=== PATIENT | female | born 1990 | race Caucasian/White ===

== ENCOUNTER 2020-03-12 07:27 | Inpatient (IN) | payer OTHER ==
[~2020-03-12] VITALS: Ht 165.1 cm; Wt 77.2 kg
[~2020-03-12 07:27] MED LIST: ETHI1TAB5 PO
[2020-03-12] MEDS ORDERED: OXYTOCIN 30U/ 0.9% NaCL 500ML 500 ML IV ONE (08:05)
[2020-03-12] MEDS ORDERED: AMPICILLIN 2 GM in SODIUM CHLORIDE 0.9% 100 ML IVPB STA (08:05)
[2020-03-12] MEDS ORDERED: NEWBORN KIT ONE (08:06)
[2020-03-12] MEDS ORDERED: OXYTOCIN 30U/ 0.9% NaCL 500ML 500 ML ONE (08:06)
[2020-03-12] MEDS ORDERED: MISOPROSTOL 200 MCG TABLET ONE (08:06)
[2020-03-12] MEDS ORDERED: LIDOCAINE 1%, 20ML ONE (08:06)
[2020-03-12] MEDS: LACTATED RINGERS 1,000 ML IV SCH ×3 (08:20→16:05)
[2020-03-12 08:22] LABS: AMPHETAMINE SCREEN, URINE Negative (Negative); BARBITURATE SCREEN, URINE Negative (Negative); BENZODIAZEPINE SCREEN, URINE Negative (Negative); CANNABINOID SCREEN, URINE Positive (Negative); COCAINE SCREEN, URINE Negative (Negative); METHADONE SCREEN, URINE Negative (Negative); OPIATE SCREEN, URINE Negative (Negative)
[2020-03-12] MEDS ORDERED: FENTANYL PF 100 MCG/2ML ONE (08:26)
[2020-03-12] MEDS ORDERED: FENTANYL PF 100 MCG/2ML IVPush PRN (08:30)
[2020-03-12] MEDS ORDERED: TERBUTALINE 1 MG/ML, 1ML SQ PRN (08:30)
[2020-03-12] MEDS ORDERED: SODIUM CITRATE/CITRIC ACID 30 ML UDC PO PRN (08:30)
[2020-03-12] MEDS ORDERED: METOCLOPRAMIDE 5 MG/ML, 2ML IVPush PRN (08:30)
[2020-03-12] MEDS ORDERED: TERBUTALINE 1 MG/ML, 1ML IVPush PRN (08:30)
[2020-03-12] MEDS ORDERED: FENTANYL PF 100 MCG/2ML IV PRN (08:30)
[2020-03-12] MEDS ORDERED: ONDANSETRON 2MG/ML, 2ML IVPush PRN (08:30)
[2020-03-12 08:41] LABS: BASOPHILS # (AUTO) 0.02 x10^3/uL (0-0.1); BASOPHILS % (AUTO) 0 % (0-1); EOSINOPHILS # (AUTO) 0.03 x10^3/uL (0-0.4); EOSINOPHILS % (AUTO) 0 % (1-7); LYMPHOCYTES # (AUTO) 1.47 x10^3/uL (1-3.4); LYMPHOCYTES % (AUTO) 18 % (22-44); MD NO; MEAN CORPUSCULAR HEMOGLOBIN 29.9 pg (27.0-34.8); MEAN CORPUSCULAR HGB CONC 33.2 g/dL (32.4-35.8); MEAN CORPUSCULAR VOLUME 89.9 fL (80-100); MEAN PLATELET VOLUME 9.4 fL (7.4-10.4); MONOCYTES # (AUTO) 0.39 x10^3/uL (0.2-0.8); MONOCYTES % (AUTO) 5 % (2-9); NEUTROPHILS # (AUTO) 6.23 x10^3/uL (1.8-6.8); NEUTROPHILS % (AUTO) 77 % (42-75); PLATELET COUNT 215 x10^3/uL (130-400); RED BLOOD COUNT 4.12 x10^6/uL (3.82-5.3); RED CELL DISTRIBUTION WIDTH 15.4 % (9.6-15.2)
[2020-03-12 09:18] VITALS: BP 129/83
[2020-03-12] MEDS ORDERED: OXYTOCIN 30U/ 0.9% NaCL 500ML 500 ML IV PRN (09:41)
[2020-03-12] MEDS ORDERED: FENTANYL EPIDCONT SCH (09:55)
[2020-03-12] MEDS ORDERED: SODIUM CHLORIDE 0.9% EPIDCONT SCH (09:55)
[2020-03-12] MEDS ORDERED: BUPIVACAINE EPIDCONT SCH (09:55)
[2020-03-12] MEDS ORDERED: LACTATED RINGERS 1,000 ML IVBOLUS PRN ×3 (10:00→12:00)
[2020-03-12] MEDS ORDERED: BUPIVACAINE 0.25% ONE (10:45)
[2020-03-12] MEDS ORDERED: LACTATED RINGERS 1,000 ML IV SCH (11:10)
[2020-03-12] MEDS ORDERED: FENTANYL/BUPIV./NS/PF 250 ML EPIDCONT SCH ×2 (11:10→11:11)
[2020-03-12] MEDS ORDERED: EPHEDRINE 50 MG/ML, 1ML IVPush PRN ×2 (11:30)
[2020-03-12] MEDS: AMPICILLIN 1 GM in SODIUM CHLORIDE 0.9% 50 ML IVPB SCH ×3 (12:45→20:45)
[2020-03-12] MEDS: HYDROXYZINE PAMOATE 50MG CAP PO PRN (12:50)
[2020-03-12] MEDS: D5%-LACTATED RINGERS 1,000 ML IV SCH ×2 (18:00→18:03)
[2020-03-13] MEDS: LACTATED RINGERS 1,000 ML IV SCH ×3 (00:05→04:00)
[2020-03-13] MEDS: HYDROXYZINE PAMOATE 50MG CAP PO PRN (00:25)
[2020-03-13] MEDS ORDERED: ONDANSETRON 2MG/ML, 2ML ONE (00:44)
[2020-03-13] MEDS: AMPICILLIN 1 GM in SODIUM CHLORIDE 0.9% 50 ML IVPB SCH ×2 (00:52→05:00)
[2020-03-13] MEDS: D5%-LACTATED RINGERS 1,000 ML IV SCH (02:00)
[2020-03-13] MEDS ORDERED: OXYTOCIN 30U/ 0.9% NaCL 500ML 500 ML IV SCH (03:34)
[2020-03-13] MEDS ORDERED: OXYTOCIN 30U/ 0.9% NaCL 500ML 500 ML ONE (03:39)
[2020-03-13] MEDS ORDERED: IBUPROFEN 600 MG TABLET ONE (03:40)
[2020-03-13] MEDS: IBUPROFEN 600 MG TABLET PO PRN ×3 (03:41→16:14)
[2020-03-13] MEDS ORDERED: SIMETHICONE 80 MG CHEW TAB PO PRN (04:00)
[2020-03-13] MEDS ORDERED: ONDANSETRON 2MG/ML, 2ML IV PRN (04:00)
[2020-03-13] MEDS ORDERED: MISOPROSTOL 200 MCG TABLET PR PRN (04:00)
[2020-03-13] MEDS ORDERED: DOCUSATE 100 MG CAPSULE PO PRN (04:00)
[2020-03-13] MEDS ORDERED: TRANEXAMIC ACID 100 MG/ML, 10ML IV ONE (04:00)
[2020-03-13] MEDS ORDERED: OXYcodone/APAP 5/325MG TABLET PO PRN ×2 (04:00)
[2020-03-13 05:50] VITALS: BP 121/80
[2020-03-13 07:55] VITALS: BP 117/75
[2020-03-13] MEDS ORDERED: IBUP-1222 PO (08:44)
[2020-03-13] MEDS ORDERED: PRENATAL VIT/IRON/FA 1 EACH TABLET PO SCH (09:00)
[2020-03-13 11:24] LABS: BASOPHILS # (AUTO) 0.03 x10^3/uL (0-0.1); BASOPHILS % (AUTO) 0 % (0-1); EOSINOPHILS # (AUTO) 0.07 x10^3/uL (0-0.4); EOSINOPHILS % (AUTO) 1 % (1-7); LYMPHOCYTES # (AUTO) 1.37 x10^3/uL (1-3.4); LYMPHOCYTES % (AUTO) 11 % (22-44); MD NO; MEAN CORPUSCULAR HEMOGLOBIN 30.2 pg (27.0-34.8); MEAN CORPUSCULAR HGB CONC 33.3 g/dL (32.4-35.8); MEAN CORPUSCULAR VOLUME 90.5 fL (80-100); MEAN PLATELET VOLUME 8.9 fL (7.4-10.4); MONOCYTES % (AUTO) 3 % (2-9); NEUTROPHILS # (AUTO) 10.43 x10^3/uL (1.8-6.8); NEUTROPHILS % (AUTO) 85 % (42-75); PLATELET COUNT 174 x10^3/uL (130-400); RED BLOOD COUNT 3.51 x10^6/uL (3.82-5.3); RED CELL DISTRIBUTION WIDTH 15.8 % (9.6-15.2)
[2020-03-13 13:01] VITALS: BP 115/81
== END 2020-03-13 16:35 | disposition home or self-care (01) | DRG 807 ==
LOC: LDOP 07:27 → LDIP 08:36 → UNDOADMIN 08:36 → EDIP 08:36 → 2NW 03-13 05:50
PROVIDERS: ADMIT Obstetrics & Gynecology; ATTEND Obstetrics & Gynecology
PROC: 10E0XZZ Delivery of Products of Conception, External Approach (ICD-10-PCS; principal; 2020-03-13)
PROC: 3E0R3BZ Introduction of Anesthetic Agent into Spinal Canal, Percutaneous Approach (ICD-10-PCS; 2020-03-13)
PROC: 00HU33Z Insertion of Infusion Device into Spinal Canal, Percutaneous Approach (ICD-10-PCS; 2020-03-13)
PROC: 0UQGXZZ Repair Vagina, External Approach (ICD-10-PCS; 2020-03-13)
DX: O77.0 Labor and delivery complicated by meconium in amniotic fluid (principal); Z37.0 Single live birth; Z3A.36 36 weeks gestation of pregnancy; O70.0 First degree perineal laceration during delivery
CPT/HCPCS: 36415; 87806; J7121; 76805; 80307; 82803; 85025; 86592; 86762; 86850; 86900; 87340; G0378; J0290; J2405; J3010; G0475; J2590; J7120